=== PATIENT | male | born 1980 | race Hispanic/Latino ===

== ENCOUNTER 2019-06-15 22:29 | Emergency (ER) | payer OTHER ==
[~2019-06-15] VITALS: Ht 172.7 cm; Wt 86.2 kg
--- OUTSIDE RECORDS SUMMARY | 2019-06-15 22:32 | XMS REPORT ---
Author Author [facility] Address Unknown Phone Unavailable Care Team Providers Care Carpentry Specialist Name Role Phone Unavailable Unavailable Payers Payer Name Policy Type Policy Number Effective Date Expiration Date Problems This patient has no known problems. Allergies, Adverse Reactions, Alerts Allergy Name Allergy Type Status Severity Reaction(s) Onset Date Inactive Date Treating Clinician Comments No Known Allergies DA Active U 2019-06-15 00:00:00 No Known Allergies DA Active U 2019-05-03 00:00:00 No Known Drug Intolerances DA Active U 2009-12-09 00:00:00 Medications This patient has no known medications.
--- NOTE | 2019-06-15 23:49 | Diagnostic Imaging Report ---
History: Seizure. Comparison studies: None Technique: Axial images were obtained from the skull base to the vertex. Coronal and sagittal reconstructions obtained from the axial data. Dose modulation, iterative reconstruction, and/or weight based adjustment of the mA/kV was utilized to reduce the radiation dose to as low as reasonably achievable. Findings: Motion artifact limits the evaluation. Scalp/skull: No abnormalities. No fractures, blastic or lytic lesions. Extra-axial spaces: No masses. No fluid collections. Brain sulci: Appropriate for age. Ventricles: Normal in size and configuration. No hydrocephalus. Parenchyma: No abnormal densities. No masses, hemorrhage, acute or chronic cortical vascular insults. Sellar/suprasellar region: No abnormalities Craniocervical junction: Patent foramen magnum. No Chiari one malformation. IMPRESSION: No abnormalities . Signed by: DR Yared Arrieta M.D. on 06/15/2019 11:45 PM
== END 2019-06-16 01:11 | disposition home or self-care (01) ==
LOC: EDBD 22:29 → ER 22:29
DX: G40.309 Generalized idiopathic epilepsy and epileptic syndromes, not intractable, without status epilepticus (principal); F17.200 Nicotine dependence, unspecified, uncomplicated; R00.0 Tachycardia, unspecified
CPT/HCPCS: 70450; 99284

== ENCOUNTER 2019-08-19 16:20 | Emergency (ER) | payer SELFPAY ==
[~2019-08-19] VITALS: Ht 172.7 cm; Wt 86.2 kg
[2019-08-19] MEDS ORDERED: DOXYCYCLINE HYCLATE TABLET 100 MG TAB PO ONE (16:45)
[2019-08-19] MEDS ORDERED: AZITHROMYCIN 250 MG TAB PO ONE (16:45)
[2019-08-19] MEDS ORDERED: CEFTRIAXONE SOD 1 GM VIAL IM ONE (16:45)
[2019-08-19] MEDS ORDERED: LIDOCAINE HCL 1% 2 ML AMP ONE (16:49)
== END 2019-08-19 17:31 | disposition home or self-care (01) ==
LOC: ER 16:20
DX: N34.1 Nonspecific urethritis (principal); Z20.2 Contact with and (suspected) exposure to infections with a predominantly sexual mode of transmission
CPT/HCPCS: 99281; J0696; J2001

== ENCOUNTER 2021-03-04 07:08 | Emergency (ER) | payer SELFPAY ==
[~2021-03-04] VITALS: Ht 172.7 cm; Wt 86.2 kg
[2021-03-04] MEDS ORDERED: IBUPROFEN 600 MG TAB PO STA (07:10)
[2021-03-04] MEDS ORDERED: TETANUS/DIPHTHERIA TOX ADULT 0.5 ML SYR IM ONE (07:15)
== END 2021-03-04 07:30 | disposition home or self-care (01) ==
LOC: ER 07:10
DX: L03.113 Cellulitis of right upper limb (principal); F17.210 Nicotine dependence, cigarettes, uncomplicated
CPT/HCPCS: 90471; 99283

== ENCOUNTER 2021-03-05 13:18 | Inpatient (IN) | payer SELFPAY ==
[~2021-03-05] VITALS: Ht 172.7 cm; Wt 86.2 kg
[2021-03-05] MEDS ORDERED: ACETAMINOPHEN 325 MG TAB PO STA (13:35)
[2021-03-05] MEDS ORDERED: PIPERACILLIN/TAZOBACTAM 3.375 GM in SODIUM CHLORIDE 0.9% 50ML 50 ML IV ONE (13:45)
[2021-03-05] MEDS ORDERED: Vancomycin IV 1 GM in SODIUM CHLORIDE 0.9% 250ML 250 ML IV ONE (13:45)
[2021-03-05] MEDS ORDERED: SODIUM CHLORIDE 0.9% 1000ML 1,000 ML IV SCH ×3 (13:45→14:45)
[2021-03-05] MEDS ORDERED: ONDANSETRON HCL INJ 2MG/ML 2ML 2 MG/ML VIAL IV STA (13:51)
[2021-03-05 13:56] LABS: BASOPHILS # (AUTO) 0.1 (0.0-0.1); BASOPHILS % 0.3 % (0.0-1.0); LYMPHOCYTES # (AUTO) 1.9 (1.0-3.2); LYMPHOCYTES % 9.6 % (18.0-39.1); MEAN CORPUSCULAR VOLUME 96.9 fL (81-99); MONOCYTES # (AUTO) 1.5 (0.2-0.8); MONOCYTES % 7.8 % (4.4-11.3); NEUTROPHILS # (AUTO) 16.1 (2.1-6.9); NEUTROPHILS % 81.5 % (38.7-80.0); PLATELET COUNT 343 x10e3/uL (140-360); RED BLOOD COUNT 4.85 x10e6/uL (4.3-5.7); RED CELL DISTRIBUTION WIDTH 12.1 % (11.7-14.4)
[2021-03-05] MEDS ORDERED: MORPHINE SULFATE INJ 4 MG/ML INJ 1ML IV ONE (14:00)
[2021-03-05 14:09] LABS: ALBUMIN 3.5 g/dL (3.5-5.0); ALBUMIN/GLOBULIN RATIO 0.8 (0.8-2.0); ANION GAP 18.6 mmol/L (8-16); CALCIUM 9.2 mg/dL (8.4-10.2); CREATININE, SERUM 1.06 mg/dL (0.72-1.25); POTASSIUM 4.6 mmol/L (3.5-5.1)
[2021-03-05] MEDS ORDERED: BENZONATATE 100 MG CAP PO PRN (14:30)
[2021-03-05] MEDS ORDERED: HYDRALAZINE HCL 20 MG/ML VIAL IV PRN (14:30)
[2021-03-05] MEDS ORDERED: ONDANSETRON HCL INJ 2MG/ML 2ML 2 MG/ML VIAL IV PRN (14:30)
[2021-03-05] MEDS ORDERED: POTASSIUM CHLORIDE 20 MEQ TAB CR PO PRN (14:30)
[2021-03-05] MEDS ORDERED: DEXTROSE 50% SYRINGE 50 ML IV PRN (14:30)
[2021-03-05] MEDS ORDERED: DIPHENHYDRAMINE HCL 25 MG CAP PO PRN (14:30)
[2021-03-05] MEDS ORDERED: CHLORASEPTIC SPRAY 177 ML BTL MM PRN (14:30)
[2021-03-05] MEDS ORDERED: DOCUSATE SODIUM 100 MG CAP PO PRN (14:30)
[2021-03-05] MEDS ORDERED: MELATONIN 5 MG TABLET PO PRN (14:30)
[2021-03-05] MEDS ORDERED: LIDOCAINE 4% PATCH TP PRN (14:30)
[2021-03-05 16:41] LABS: INR 1.16
[2021-03-05 16:42] LABS: PARTIAL THROMBOPLASTIN TIME 36.3 seconds (23.8-35.5)
[2021-03-05] MEDS: SODIUM CHLORIDE 0.9% 1000ML 1,000 ML IV SCH ×4 (16:45→22:45)
[2021-03-05] MEDS ORDERED: ONDANSETRON HCL INJ 2MG/ML 2ML 2 MG/ML VIAL ONE (17:21)
[2021-03-05] MEDS ORDERED: LIDOCAINE HCL 2% LOCAL INJ 5 ML SDV VIAL INJ ONE (17:21)
[2021-03-05] MEDS ORDERED: KETOROLAC TROMETHAMINE 30 MG/ML VIAL ONE (17:21)
[2021-03-05] MEDS ORDERED: SEVOFLURANE INHAL SOLN 250 ML PEN BTL ONE (17:21)
[2021-03-05] MEDS ORDERED: PROPOFOL IV EMULSION 10 MG/ML 20 ML VIAL ONE (17:21)
[2021-03-05] MEDS ORDERED: DEXAMETHASONE SOD PHOS INJ 4 MG/ML SDV ONE (17:21)
[2021-03-05] MEDS ORDERED: POVIDONE IODINE 0.05% 0.05 % ML PO ONE (17:21)
[2021-03-05] MEDS: ENOXAPARIN SOD INJ 40 MG/0.4 ML SYR SC SCH (18:44)
[2021-03-05] MEDS: KETOROLAC TROMETHAMINE 30 MG/ML VIAL IV SCH ×2 (18:46→21:00)
[2021-03-05] MEDS: CEFEPIME 1 GM in SODIUM CHLORIDE 0.9% 50ML 50 ML IV SCH (23:29)
[2021-03-06] MEDS: SODIUM CHLORIDE 0.9% 1000ML 1,000 ML IV SCH ×2 (00:45→01:46)
[2021-03-06] MEDS: Vancomycin IV 1 GM in SODIUM CHLORIDE 0.9% 250ML 250 ML IV SCH ×3 (01:45→22:52)
[2021-03-06] MEDS: ACETAMINOPHEN 325 MG TAB PO PRN ×2 (01:47→14:41)
[2021-03-06] MEDS: KETOROLAC TROMETHAMINE 30 MG/ML VIAL IV SCH ×4 (05:00→21:29)
[2021-03-06 07:09] LABS: BASOPHILS # (AUTO) 0.1 (0.0-0.1); BASOPHILS % 0.4 % (0.0-1.0); EOSINOPHILS # (AUTO) 0.1 (0.0-0.4); EOSINOPHILS % 0.4 % (0.0-6.0); HEMATOCRIT 44.3 % (38.2-49.6); HEMOGLOBIN 14.7 g/dL (14.0-18.0); LYMPHOCYTES # (AUTO) 2.7 (1.0-3.2); LYMPHOCYTES % 16.2 % (18.0-39.1); MEAN CORPUSCULAR HEMOGLOBIN 33.1 pg (28-32); MEAN CORPUSCULAR HGB CONC 33.2 g/dL (31-35); MEAN CORPUSCULAR VOLUME 99.8 fL (81-99); MONOCYTES # (AUTO) 1.5 (0.2-0.8); MONOCYTES % 8.9 % (4.4-11.3); NEUTROPHILS # (AUTO) 12.2 (2.1-6.9); NEUTROPHILS % 73.4 % (38.7-80.0); PLATELET COUNT 308 x10e3/uL (140-360); RED BLOOD COUNT 4.44 x10e6/uL (4.3-5.7); RED CELL DISTRIBUTION WIDTH 12.4 % (11.7-14.4)
[2021-03-06 07:27] LABS: ANION GAP 12.5 mmol/L (8-16); CALCIUM 9.1 mg/dL (8.4-10.2); CREATININE, SERUM 0.8 mg/dL (0.72-1.25); POTASSIUM 4.5 mmol/L (3.5-5.1)
[2021-03-06] MEDS: CEFEPIME 1 GM in SODIUM CHLORIDE 0.9% 50ML 50 ML IV SCH ×3 (07:30→21:30)
[2021-03-06 07:34] LABS: CLARITY,URINE CLEAR (CLEAR); COLOR,URINE YELLOW (YELLOW); KETONES,URINE NEGATIVE (NEGATIVE); LEUKOCYTE ESTERASE ,URINE NEGATIVE (NEGATIVE); NITRITE,URINE NEGATIVE (NEGATIVE); PROTEIN,URINE DIPSTICK 1+ (NEGATIVE); URINE UROBILINOGEN 1 mg/dL (0.2 - 1)
[2021-03-06 07:37] LABS: BACTERIA,URINE FEW /HPF; EPITHELIAL CELLS,URINE FEW /LPF; RBC,URINE 0-5 /HPF (0-5); WBC,URINE (MAN) 0-5 /HPF (0-5)
[2021-03-06] MEDS: PANTOPRAZOLE SOD 40 MG TABEC PO SCH (08:17)
[2021-03-06] MEDS ORDERED: GADOBENATE DIMEGLUMINE 1 ML IV ONE (08:35)
[2021-03-06] MEDS: DEXTROSE 5%/0.9% SOD CHL 1,000 ML IV SCH (12:51)
[2021-03-06] MEDS: TRAMADOL HCL 50 MG TAB PO PRN (13:48)
[2021-03-06 15:40] VITALS: BP 134/84
[2021-03-06 15:41] VITALS: BP 134/84
[2021-03-06 15:55] VITALS: BP 134/84
[2021-03-06] MEDS: ENOXAPARIN SOD INJ 40 MG/0.4 ML SYR SC SCH (16:29)
[2021-03-06] MEDS ORDERED: NICOTINE 21 MG/EA PATCH TOP ONE (19:30)
[2021-03-06 20:00] VITALS: BP 132/63
[2021-03-06 20:35] VITALS: BP 132/63
[2021-03-07] VITALS: BP 133/75
[2021-03-07] MEDS: DEXTROSE 5%/0.9% SOD CHL 1,000 ML IV SCH ×2 (01:33→17:46)
[2021-03-07 04:00] VITALS: BP 131/80
[2021-03-07] MEDS: CEFEPIME 1 GM in SODIUM CHLORIDE 0.9% 50ML 50 ML IV SCH ×3 (05:36→23:31)
[2021-03-07] MEDS: PANTOPRAZOLE SOD 40 MG TABEC PO SCH (07:30)
[2021-03-07] MEDS: SODIUM CHLORIDE 0.9% 1000ML 1,000 ML IV SCH (08:39)
[2021-03-07 08:53] VITALS: BP 133/88
[2021-03-07] MEDS ORDERED: Vancomycin IV 1 GM VIAL ONE (11:10)
[2021-03-07] MEDS ORDERED: FENTANYL CITRATE/PF 100MCG/2 ML INJ ONE (12:19)
[2021-03-07] MEDS: ENOXAPARIN SOD INJ 40 MG/0.4 ML SYR SC SCH (16:24)
[2021-03-07] MEDS: Vancomycin IV 1 GM in SODIUM CHLORIDE 0.9% 250ML 250 ML IV SCH (19:21)
[2021-03-07 21:15] VITALS: BP 106/81
[2021-03-08] VITALS (8 sets, daily range): BP systolic 127–143; BP diastolic 79–92
[2021-03-08] MEDS: DEXTROSE 5%/0.9% SOD CHL 1,000 ML IV SCH ×2 (04:30→13:49)
[2021-03-08] MEDS: Vancomycin IV 1 GM in SODIUM CHLORIDE 0.9% 250ML 250 ML IV SCH ×2 (05:10→16:58)
[2021-03-08 06:30] LABS: BASOPHILS % 0.3 % (0.0-1.0); EOSINOPHILS % 0.3 % (0.0-6.0); HEMATOCRIT 34.8 % (38.2-49.6); HEMOGLOBIN 12.8 g/dL (14.0-18.0); LYMPHOCYTES # (AUTO) 2.7 (1.0-3.2); LYMPHOCYTES % 22.8 % (18.0-39.1); MEAN CORPUSCULAR HEMOGLOBIN 36.5 pg (28-32); MEAN CORPUSCULAR HGB CONC 36.8 g/dL (31-35); MEAN CORPUSCULAR VOLUME 99.1 fL (81-99); MONOCYTES % 8.1 % (4.4-11.3); PLATELET COUNT 277 x10e3/uL (140-360); RED BLOOD COUNT 3.51 x10e6/uL (4.3-5.7); RED CELL DISTRIBUTION WIDTH 13.2 % (11.7-14.4)
[2021-03-08] MEDS: CEFEPIME 1 GM in SODIUM CHLORIDE 0.9% 50ML 50 ML IV SCH ×3 (06:46→23:08)
[2021-03-08 06:57] LABS: ANION GAP 13.9 mmol/L (8-16); CALCIUM 8.7 mg/dL (8.4-10.2); CREATININE, SERUM 0.71 mg/dL (0.72-1.25); POTASSIUM 3.9 mmol/L (3.5-5.1)
[2021-03-08] MEDS: PANTOPRAZOLE SOD 40 MG TABEC PO SCH (07:30)
[2021-03-08] MEDS: ENOXAPARIN SOD INJ 40 MG/0.4 ML SYR SC SCH (16:53)
[2021-03-08] MEDS: TRAMADOL HCL 50 MG TAB PO PRN (16:53)
[2021-03-09] VITALS: BP 127/88
[2021-03-09 04:00] VITALS: BP 128/92
[2021-03-09] MEDS: Vancomycin IV 1 GM in SODIUM CHLORIDE 0.9% 250ML 250 ML IV SCH ×2 (05:25→16:17)
[2021-03-09] MEDS: CEFEPIME 1 GM in SODIUM CHLORIDE 0.9% 50ML 50 ML IV SCH ×2 (07:00→14:00)
[2021-03-09] MEDS: DEXTROSE 5%/0.9% SOD CHL 1,000 ML IV SCH (07:10)
[2021-03-09] MEDS: PANTOPRAZOLE SOD 40 MG TABEC PO SCH (07:30)
[2021-03-09] MEDS: TRAMADOL HCL 50 MG TAB PO PRN ×2 (08:30→16:41)
[2021-03-09 08:51] VITALS: BP 125/83
[2021-03-09 12:07] VITALS: BP 137/93
[2021-03-09] MEDS ORDERED: ONDANSETRON HCL 4 MG ORAL DISINTEGRATING TAB PO PRN (13:00)
[2021-03-09 16:21] VITALS: BP 122/84
== END 2021-03-09 16:53 | disposition home or self-care (01) | DRG 501 ==
LOC: ER 13:33 → ERHOLD 14:12 → MED/SURG3 03-06 13:12
PROVIDERS: ADMIT Internal Medicine; ATTEND Internal Medicine
PROC: 0R9L0ZZ Drainage of Right Elbow Joint, Open Approach (ICD-10-PCS; 2021-03-07)
PROC: 0MB30ZZ Excision of Right Elbow Bursa and Ligament, Open Approach (ICD-10-PCS; principal; 2021-03-07 11:00)
DX: M71.121 Other infective bursitis, right elbow (principal); L03.119 Cellulitis of unspecified part of limb; L03.113 Cellulitis of right upper limb; A49.02 Methicillin resistant Staphylococcus aureus infection, unspecified site; F17.210 Nicotine dependence, cigarettes, uncomplicated; Z20.822 Contact with and (suspected) exposure to COVID-19
CPT/HCPCS: 36415; 71046; 80048; 80053; 80202; 81001; 83605; 85025; 85610; 85730; 87040; 87071; 87075; 87086; 87186; 87205; 93005; 93971; 99284; J0692; J1100; J1650; J1885; J2001; J2270; J2405; J2543; J3010; J3370; J7030; J7042; J7050; U0002